=== PATIENT | female | born 1960 | race Caucasian/White ===

== ENCOUNTER → 2016-08-10 | Day surgery (SDC) | payer BC, OTHER ==
[~2016-08-10] VITALS: Ht 154.9 cm; Wt 91.0 kg
[2016-08-10] VITALS (11 sets, daily range): BP systolic 118–144; BP diastolic 74–89; PULSE 70–81; TEMP 36.6–36.7; O2SAT 92–96; Ht 154.9 cm; Wt 91.0 kg
[~2016-08-10] MED LIST: ASPI-435 PO; BLAC1TAB2 PO; CRG25 PO; DTRSR/2 PO; GLC500 PO; LPT/40 PO; LPT20 PO; LSN5 PO; PXL20 PO
--- NOTE | 2016-08-10 10:18 | Discharge Instructions ---
Discharge Instructions Procedure Procedure Date: Aug 10, 2016. Reason for visit: *W/Flex&Extension *Lumbar Pain. Discharge Discharge Date: Aug 10, 2016. Discharge Diagnosis: back pain, leg radiculopathy Instructions Activity Recommendations: 1 Day-May resume regular activity Return to School/Work: no limitations Recommended Home Diet: Resume Previous Diet Allergies Coded Allergies: Penicillins (Verified Allergy, Unknown, hives, 08/10/16) Kevin Ewing Recommendations: Call your doctor if: * Temperature above 101 degrees * Pain not relieved by pain medicine ordered * There is increased drainage or redness from any incision * You have any unanswered questions or concerns. Your Doctors Instructions noted above were prepared by provider Twan Mcdaniel. Patient Signature Section: Patient Instructions Signature Page Shimon Oh Patient (or Guardian) Signature/Date: I have read and understand the instructions given to me by my caregivers. Caregiver/RN/Doctor Signature/Date: The above-named patient and/or guardian has received patient instructions on this date. + Original Patient Signature Page (only) stays with chart. Please make copy for patient.
--- NOTE | 2016-08-10 10:50 | DIAGNOSTIC IMAGING REPORT ---
CT POST MAMMOGRAM CT SCAN OF THE LUMBAR SPINE CT DOSE: 1298.55 mGy.cm CLINICAL HISTORY: Back pain with left leg radiculopathy. TECHNIQUE: Following a sinus and lumbar myelogram, CT scanning was performed. Helical images were acquired in the transverse plane. Sagittal and coronal before imaging was performed. COMPARISON STUDY: None. FINDINGS: T11-12 level: There is a tiny right paracentral disc protrusion. There is no significant spinal foraminal stenosis. T12-L1 level: There is no disc bulge or focal herniation. There is no spinal or foraminal stenosis. L1-2 level: There is posterior osteophytic spurring with subjacent disc protrusion. There is mild spinal stenosis. There is no significant foraminal narrowing. L2-3 level: There is posterior osteophytic spurring slightly asymmetric to the left with subjacent disc protrusion. There is mild spinal canal narrowing. There is no significant foraminal narrowing. L3-4 level: There is a circumferential disc bulge present. There is mild spinal stenosis. There is no significant foraminal narrowing. L4-5 level: There is a mild circumferential disc bulge present. There is slight flattening of the anterior aspect the thecal sac. Significant spinal stenosis is not felt to be present. There is no significant foraminal narrowing L5-S1 level: There is no evidence of significant disc bulge or focal herniation. There is no significant spinal or foraminal stenosis. The left S1 nerve root does not fill with contrast as well as the right S1 nerve root. This finding is of uncertain etiology. There is a mild lumbar dextroscoliosis. There is facet joint arthropathy most pronounced at the L5-S1 level. IMPRESSION: Multilevel spondylitic changes as described above. Multilevel osteophytic spurring with subjacent disc protrusion. There is mild spinal canal narrowing at multiple levels. At no level is there evidence for moderate to severe spinal stenosis. There is no evidence of significant foraminal narrowing. Electronically signed by: Twan Mcdaniel M.D. 08/10/2016 10:48 AM Dictated Date/Time: 08/10/2016 10:42 AM
--- NOTE | 2016-08-10 10:53 | DIAGNOSTIC IMAGING REPORT ---
LUMBAR MYELOGRAM CLINICAL HISTORY: Back pain with left leg radiculopathy. COMPARISON STUDY: No previous studies for comparison. FINDINGS: A timeout was performed. The risks of the procedure were explained the patient. Informed consent was obtained. The patient was prepped and draped in sterile fashion. The skin was anesthetized 1% lidocaine. A lumbar puncture was performed the L4-5 level. Under fluoroscopic guidance, 12 cc of Isovue-M 200 was instilled into the thecal sac. A total of 1.2 minutes of fluoroscopic time was utilized. 13 fluoroscopic spot images were acquired. There is no evidence of nerve root amputation. There are mild multilevel disc bulges associated with osteophytic spurring. There is mild multilevel spinal stenosis. There is no instability on flexion or extension. There were no immediate complications.. The patient was sent to the CT suite for further evaluation. IMPRESSION: 1. Multilevel disc bulges with posterior osteophytes and mild multilevel spinal canal narrowing 2. No evidence of instability on flexion-extension 3. No evidence of nerve root amputation Electronically signed by: Twan Mcdaniel M.D. 08/10/2016 10:51 AM Dictated Date/Time: 08/10/2016 10:49 AM
== END | disposition home or self-care (01) ==
LOC: C.ACU 07:36
PROVIDERS: ATTEND Orthopaedic Surgery Orthopaedic Surgery of the Spine
DX: M54.16 Radiculopathy, lumbar region (principal)